=== PATIENT | male | born 2000 | race Caucasian/White ===

== ENCOUNTER 2019-12-21 15:59 | Emergency (ER) | payer MEDICAID ==
[~2019-12-21] VITALS: Ht 177.8 cm; Wt 108.0 kg
[2019-12-21 16:08] VITALS: Ht 177.8 cm; Wt 108.0 kg
[2019-12-21 16:50] VITALS: BP 134/75
== END 2019-12-21 16:50 | disposition home or self-care (01) ==
LOC: ED 15:59
DX: J32.9 Chronic sinusitis, unspecified (principal)

== ENCOUNTER 2019-12-28 15:50 | Inpatient (IN) | payer MEDICAID, SELFPAY ==
[~2019-12-28] VITALS: Ht 177.8 cm; Wt 103.9 kg
[2019-12-28 16:00] VITALS: Ht 177.8 cm; Wt 103.9 kg
--- NOTE | 2019-12-28 16:00 | NUR ---
PT PLACED IN COVID 19 R/O IMMEDIATELY FROM [facility].
--- NOTE | 2019-12-28 16:22 | NUR ---
PT'S FATHER COVID 19 POSITIVE, PARENT WORKS ON [employer] IN [place], NO OTHER FAMILY MEMBERS WITH KNOWN ILLNESS.
[2019-12-28] MEDS ORDERED: MOTRIN PO (17:36)
[2019-12-28] MEDS ORDERED: SUDAFED 12HR120 MG PO (17:38)
[2019-12-28] MEDS ORDERED: APAP325 MG PO (17:39)
--- NOTE | 2019-12-28 18:14 | NUR ---
PT BEING ADVISED HE WILL BE ADMITTED, PT STATES HIS MOTHER DOESNT WANT HIM TO STAY. LAURA VERMA IN AND EXPLAINED IMPORTANCE TO BE TREATED FOR POSSIBEL COVID 19 AND PNUEMONIA. PT AND PARENT(MOM IS ON SPEAKER PHONE) AGREED TO STAY FOR ADMISSION.
--- NOTE | 2019-12-28 18:21 | NUR ---
REPORT CALLED TO [facility] PRESTON. PT AWARE HE WILL GO TO FLOOR FOR [facility].
[2019-12-28 18:33] LABS: CALCIUM 8.7 mg/dL (8.5-10.1); CARBON DIOXIDE 28.6 mmol/L (21-32); CHLORIDE SERUM 99 mmol/L (98-107); CREATININE SERUM 0.9 mg/dL (0.7-1.3); GFR1 > 60 mL/min; GLUCOSE SERUM 95 mg/dL (74-106); POTASSIUM SERUM 4.3 mmol/L (3.5-5.1); SODIUM SERUM 137 mmol/L (136-145)
--- NOTE | 2019-12-28 18:35 | NUR ---
RECEIVED PT FROM ED VIA [facility], PT WAS WEARING MASK ON ARRIVAL CAME IN DUE TO COUGH X1 WEEK, SOB, DIARRHEA AND BODY ACHES X3 DAYS. AAOX4. DENIES HEADACHE/DIZZINESS. EVEN AND UNLABORED BREATHING, LUNG SOUNDS CTA, O2 SAT=96%, RA. W/ NON-PRODUCTIVE COUGH. DENIES CHEST PAIN/PRESSURE, SINUS TACHYCARDIA ON THE MONITOR, HR AT 123. STATED THAT HE HAS DIARRHEAL EPISODES X3 DAYS. DENIES ABDOMINAL PAIN/NAUSEA/VOMITING AT THIS TIME. BOWEL SOUNDS ACTIVE. VOIDS FREELY. IV SITE ON THE LAC GAUGE 20 IS PATENT AND INTACT. INSTRUCTED PT ON HOW TO USE INCENTIVE SPIROMETER, PT RETURN DEMONSTRATED ON HOW TO USE INCENTIVE SPIROMETER. ENCOURAGED PATIENT TO LAY IN PRONE POSITION ORDERED. PT VERBALIZES UNDERSTANDING. SIDE RAILS UPX2. CALL LIGHT ON REACH. PLACED ON DROPLET/CONTACT ISOLATION.
[2019-12-28 18:37] LABS: ALBUMIN 3.7 g/dL (3.4-5.0); ALKALINE PHOSPHATASE 75 U/L (46-116); ALT/SGPT 36 U/L (16-63); AST/SGOT 30 U/L (15-37); BILIRUBIN TOTAL 0.7 mg/dL (0.20-1.00); LACTIC DEHYDROGENASE (LDH) 218 U/L (100-190); TOTAL PROTEIN, SERUM 8.1 g/dL (6.4-8.2)
--- NOTE | 2019-12-28 19:00 | NUR ---
ENDORSED TO PRIMARY NURSE BETSY FOR CONTINUITY OF CARE
[2019-12-28 19:01] VITALS: BP 125/78
--- NOTE | 2019-12-28 19:33 | NUR ---
RECEIVED PT FROM PREVIOUS SHIFT. PT ASKED FOR FOOD, SPOKE TO DR IN REGARDS TO DIET ORDER HE STATED "REGULAR DIET". PT GIVEN SANDWHICH AND PUDDING. PT IN NO ACUTE DISTRESS. CONTACT/DROPLET ISOLATION IN PLACE DUE TO RULE OUT COVID-19. EVEN AND UNLABORED BREATHING, ROOM AIR. TELE MONITOR IN PLACE, ST. PT IS AMBULATORY, NO COMPLAINTS OF PAIN/CHEST PAIN, OR SOB AT THIS MOMENT. PT ENCOURAGED TO LAY IN PRONE POSITION. LEFT AC IV PATENT AND INFUSING WELL. CALL LIGHT WITHIN REACH, BED IN LOWEST POSITION.
[2019-12-28 21:16] VITALS: BP 128/86
[2019-12-29 05:02] VITALS: BP 121/88
--- NOTE | 2019-12-29 05:56 | NUR ---
PT IN NO ACUTE DISTRESS. TEMP WAS ELEVATED AT 102.4, PT WAS GIVEN TYLENOL AND IMPLEMENTED COOLING MEASURES. EVEN AND UNLABORED BREATHING. IV PATENT AND INFUSING WELL. BED IN LOWEST POSITION AND CALL LIGHT WITHIN REACH. WILL ENDORSE CARE TO INCOMING RN. WILL CONTINUE TO MONITOR.
[2019-12-29 06:35] LABS: PLATELET COUNT 233 x10^3mcL (130-400)
[2019-12-29 06:39] LABS: BASOPHIL % 0 % (0-2)
[2019-12-29 06:43] LABS: CALCIUM 8.8 mg/dL (8.5-10.1); CARBON DIOXIDE 27.9 mmol/L (21-32); CHLORIDE SERUM 100 mmol/L (98-107); CREATININE SERUM 0.9 mg/dL (0.7-1.3); GFR1 > 60 mL/min; GLUCOSE SERUM 95 mg/dL (74-106); PHOSPHOROUS 3.8 mg/dL (2.5-4.9); SODIUM SERUM 138 mmol/L (136-145)
--- NOTE | 2019-12-29 07:40 | NUR ---
RECEIVED PT IN NO ACUTE DISTRESS. AAOX4. RESP EVEN AND UNLABORED ON RA. REPORTS DRY COUGH. SR ON TELE MONITOR, DENIES CP OR PRESSURE. IV WITH NO REDNESS OR SWELLING. CONTACT/DROPLET ISOLATION. BED IN LOW POSITION, CALL LIGHT WITHIN REACH. WILL CONTINUE TO MONITOR.
[2019-12-29 08:30] VITALS: BP 126/84
--- NOTE | 2019-12-29 09:43 | NUR ---
DR. CRAWFORD NOTIFIED OF PATIENT'S POSITIVE COVID RESULTS. PT ON CONTACT/DROPLET ISOLATION. WILL CONTINUE TO MONITOR.
[2019-12-29 12:52] VITALS: BP 111/76
--- NOTE | 2019-12-29 12:53 | NUR ---
PT SITTING UP ON THE SIDE OF THE BED. REPORTS HAVING EPISODY OF EPISTAXIS EARLIER, BLOOD NOTED IN BATHROOM SINK AND ON AU. PT STATED HE USUALLY GETS BLOODY NOSE WHEN IT IS HOT OUTSIDE. ALSO REQUESTED TO HAVE OXYGEN FOR COMFORT. PT PLACED ON O2 AT 2LPM REQUESTED. DROPLET/CONTACT ISOLATION. IV WITH NO REDNESS OR SWELLING NOTED. CALL LIGHT WITHIN REACH. WILL CONTINUE TO MONITOR.
[2019-12-29 15:52] LABS: UA SPECIFIC GRAVITY >=1.030 (1.005-1.035); microscopic required? YES; urine erythrocyte NEGATIVE (NEGATIVE)
[2019-12-29 17:38] VITALS: BP 111/75
--- NOTE | 2019-12-29 18:13 | NUR ---
PT RESTING IN BED. NO ACUTE DISTRESS. RESP EVEN AND UNLABORED ON RA/2L NC. USING INCENTIVE SPIROMETER 10X/HR WHILE AWAKE. DRY COUGH. IV WITH NO REDNESS OR SWELLING NOTED. DROPLET/CONTACT ISOLATION. BED IN LOW POSITION, CALL LIGHT WITHIN REACH. WILL ENDORSE TO ONCOMING SHIFT.
[2019-12-29 19:32] LABS: BASOPHIL % 0.3 % (0-2); PLATELET COUNT 250 x10^3mcL (130-400)
[2019-12-29 20:01] LABS: AMPHETAMINE QUAL UR NONE DETECTED (See below)
--- NOTE | 2019-12-29 20:40 | NUR ---
RECEIVED CARE FROM PREVIOUS SHIFT. PT IN NO ACUTE DISTRESS. EVEN AND UNLABORED BREATHING, 2L NC 100% 02 SAT. PT DENIES ANY PAIN OR CHEST PAIN AT THIS MOMENT. DROPLET PRECAUTIONS IN PLACE. PT SITTING AT BEDSIDE. FRESH WATER WAS PROVIDED TO THE PT. BED IN LOWEST POSITION, CALL LIGHT WITHIN REACH. ENCOURAGED PT TO USE CALL LIGHT NEEDED.
[2019-12-29 21:12] VITALS: BP 117/72
--- NOTE | 2019-12-30 00:15 | NUR ---
PT IS CURRENTLY ASLEEP. IN NO ACUTE DISTRESS. TELE #18, SR. NO C/O OF PAIN, CHEST PAIN. BED IN LOWEST POSITION, CALLL LIGHT WITHIN REACH.
[2019-12-30 06:14] LABS: BASOPHIL % 0.5 % (0-2); PLATELET COUNT 240 x10^3mcL (130-400); RED CELL DISTRIBUTION WIDTH 12.7 % (11.5-14.5)
--- NOTE | 2019-12-30 06:32 | NUR ---
PT IN NO ACUTE DISTRESS. NO C/O PAIN, CHEST PAIN AT THIS MOMENT. ROOM AIR/2L NC. TELE #18, NSR. I.S AT BEDSIDE. ISOLATION PRECAUTIONS IN PLACE. BED IN LOWEST POSITION. CALL LIGHT WITHIN REACH. WILL ENDORSE CARE TO INCOMING SHIFT. WILL CONTINUE TO MONITOR.
[2019-12-30 06:36] LABS: CALCIUM 8.9 mg/dL (8.5-10.1); CHLORIDE SERUM 101 mmol/L (98-107); CREATININE SERUM 0.9 mg/dL (0.7-1.3); GFR1 > 60 mL/min; GLUCOSE SERUM 95 mg/dL (74-106); PHOSPHOROUS 4.3 mg/dL (2.5-4.9); POTASSIUM SERUM 4.5 mmol/L (3.5-5.1); SODIUM SERUM 138 mmol/L (136-145)
--- NOTE | 2019-12-30 07:31 | NUR ---
RECEIVED PT IN NO ACUTE DISTRESS. SLEEPING BUT EASILY AROUSABLE. BREATHING EVEN AND UNLABORED ON RA/2L NC. IV WITH NO REDNESS OR SWELLING NOTED. DROPLET/CONTACT ISOLATION. BED IN LOW POSITION, CALL LIGHT WITHIN REACH. WILL CONTINUE TO MONITOR.
[2019-12-30 09:03] VITALS: BP 111/78
[2019-12-30 12:43] VITALS: BP 107/73
--- NOTE | 2019-12-30 12:44 | NUR ---
PT IN NO ACUTE DISTRESS. LAYING IN PRONE POSITION. RESP EVEN AND UNLABORED ON 2L NC. DROPLET/CONTACT ISOLATION. IV WITH NO REDNESS OR SWELLING. CALL LIGHT WITHIN REACH. WILL CONTINUE TO MONITOR.
[2019-12-30 17:52] VITALS: BP 111/74
--- NOTE | 2019-12-30 17:54 | NUR ---
PT IN NO ACUTE DISTRESS. SITTING ON THE SIDE OF THE BED. REPORTS BREATHING A LITTLE EASIER. NOW ON RA, O2 SAT 99%. IV WITH NO REDNESS OR SWELLING. DROPLET/CONTACT ISOLATION. PT EATING DINNER AT THIS TIME. BED IN LOW POSITION, CALL LIGHT WITHIN REACH. WILL ENDORSE TO ONCOMING SHIFT.
--- NOTE | 2019-12-30 19:20 | NUR ---
RECEIVED PT FROM PREVIOUS SHIFT. PT IN NO ACUTE DISTRESS. EVEN AND UNLABORED BREATHING, ROOM AIR, 99% O2. PT SITTING AT THE SIDE OF BED. TELE #18, NSR. DROPLET PRECAUTIONS IN PLACE. IV, LAC, PATENT AND INFUSING WELL. SALINE LOCK. PT AMBULATORY. PT INSTRUCTED TO USE I.S PRESCRIBED AND LAY PRONE WHEN POSSIBLE. BED IN LOWEST POSITION AND CALL LIGHT WITHIN REACH.
[2019-12-30 22:17] VITALS: BP 112/70
[2019-12-31 05:54] VITALS: BP 94/58
--- NOTE | 2019-12-31 06:18 | NUR ---
PT IS RESTING LAYING IN PRONE POSITION. NO ACUTE DISTRESS. EVEN AND UNLABORED BREATHING, ROOM AIR. TELE #18, HR 74. RT PROTOCOLS IN PLACE. ISOLATION PRECAUTIONS IN PLACE. PT DENIES PAIN, CHEST PAIN, OR SOB AT THIS MOMENT. IV, LAC PATENT. SALINE LOCK. PROVIDED ICE PER PTS REQUEST. BED IN LOWEST POSITION, CALL LIGHT WITHIN REACH. WILL ENDORSE CARE TO INCOMING SHIFT, RN. WILL CONTINUE TO MONITOR.
[2019-12-31 06:38] LABS: BASOPHIL % 0.4 % (0-2); PLATELET COUNT 277 x10^3mcL (130-400); RED CELL DISTRIBUTION WIDTH 12.8 % (11.5-14.5)
[2019-12-31 07:09] LABS: CHLORIDE SERUM 102 mmol/L (98-107); CREATININE SERUM 0.8 mg/dL (0.7-1.3); GFR1 > 60 mL/min; GLUCOSE SERUM 93 mg/dL (74-106); PHOSPHOROUS 3.9 mg/dL (2.5-4.9); POTASSIUM SERUM 4.4 mmol/L (3.5-5.1); SODIUM SERUM 141 mmol/L (136-145)
[2019-12-31 07:30] VITALS: BP 104/62
[2019-12-31 07:48] LABS: MAGNESIUM 2.3 mg/dL (1.8-2.4)
--- NOTE | 2019-12-31 08:12 | NUR ---
RECIEVED REPORT FROM [facility] NURSE. MAYO IS CURRENTLY ON ISOLATION PRECAUTIONS DUE TO POSITIVE COVID 19 STATUS. PATIENT IS AWAKE ALERT AND ORIENTED. OXYGEN SATURATION AT 96% ON ROOM AIR. LUNG SOUNDS CLEAR TO AUSCULTATION. NO REPORT OF SOB AT THIS TIME. NO REPORT OF PAIN AT THIS TIME. IV TO THE LAC CURRENTLY SALINE LOCKED. NO QUESTIONS OR CONCERNS AT THIS TIME. PATIENT CURRENTLY ON TELEMETRY MONITORING. CALL LIGHT WITHIN REACH. WILL CONTINUE TO PROVIDE CARE FOR THIS PATIENT.
[2019-12-31] MEDS ORDERED: PLA200 PO (09:13)
[2019-12-31] MEDS ORDERED: ZITHROMAX500 MG PO (09:13)
[2019-12-31 14:04] VITALS: BP 104/62
--- NOTE | 2019-12-31 14:56 | NUR ---
DISCHARGE EDUCATION AND PRESCRIPTIONS GIVEN TO PATIENT. EDUCATION PROVIDED REGARDING SELF-QUARANTEENING AT HOME FOR THE NEXT 14 DAYS DUE TO POSITIVE COVID STATUS. ID WRIST BAND REMOVED FROM PATIENT. TELEMETRY REMOVED AND RETURNED TO TELEMETRY STATION. IV CATHETER REMOVED INTACT. PATIENT PROVIDED A DISCOUNT PRESCRIPTION CARD IN ORDER TO RECIEVE A DISCOUNT ON MEDICATION, PATIENT ALSO PROVIDED WITH A HANDOUT FOR LOW COST CLINICS NEAR HIM. ALL QUESTIONS AND COCERNS ADDRESSED AT THIS TIME. PATIENT ACCOMPANIED TO THE LOBBY BY RN.
--- NOTE | 2019-12-31 16:01 | NUR ---
Discount pharmacy card and list to low cost medical clinics given to patient by Lela.
== END 2019-12-31 15:00 | disposition home or self-care (01) | DRG 137 ==
LOC: ED 15:50 → DU 17:27
PROVIDERS: ADMIT Internal Medicine
DX: U07.1 COVID-19 (principal); J96.00 Acute respiratory failure, unspecified whether with hypoxia or hypercapnia; Z68.32 Body mass index [BMI] 32.0-32.9, adult
CPT/HCPCS: 85378; 87804; G0378; J0456; J0696; J2405; J7040; Q0092; U0002